=== PATIENT | male | born 1980 | race Caucasian/White ===

== ENCOUNTER 2023-07-03 16:01 | Outpatient (OUT) | payer OTHER, SELFPAY ==
[2023-07-03 16:44] LABS: Basophils Absolute Auto 0.1 10^3/uL (0.0-0.1); Eosinophils Absolute Auto 0.2 10^3/uL (0.0-0.7); Eosinophils Percent Auto 2.3 % (0.9-7.0); Hematocrit 49.2 % (42.0-54.0); Hemoglobin 16.3 g/dL (14.0-18.0); Immature Granulocytes Abs Auto 0.03 10^3/uL (0.00-0.03); Immature Granulocytes Pct Auto 0.3 % (0.0-0.5); Lymphocytes Absolute Auto 2.9 10^3/uL (1.2-3.8); Lymphocytes Percent Auto 29.1 % (20.5-60.0); Mean Corpuscular HGB Conc 33.1 g/dL (29.9-35.2); Mean Corpuscular Hemoglobin 30.5 pg (25.9-34.0); Mean Corpuscular Volume 92.1 fL (80.0-94.0); Mean Platelet Volume 10.8 fL (9.5-13.5); Monocytes Absolute Auto 0.9 10^3/uL (0.3-0.8); Monocytes Percent Auto 8.7 % (1.7-12.0); Neutrophils Absolute Auto 5.9 10^3/uL (1.4-6.5); Neutrophils Percent Auto 58.6 % (43.0-75.0); Platelet Count 219 10^3/uL (150-450); Red Blood Count 5.34 10^6/uL (4.70-6.10); Red Cell Distribution Width 13.5 % (11.0-15.0); White Blood Count 10.1 10^3/uL (4.0-11.0)
[2023-07-03 17:38] LABS: Alanine Aminotransferase 67 U/L (16-63); Albumin Globulin Ratio 1.4; Albumin Level 4.4 g/dL (3.4-5.0); Alkaline Phosphatase 79 U/L (46-116); Anion Gap 10.9; Aspartate Amino Transferase 26 U/L (15-37); BUN Creatinine Ratio 15.7; Bilirubin Total 0.6 mg/dL (0.2-1.0); Calcium 9.5 mg/dL (8.5-10.1); Carbon Dioxide 30.6 mmol/L (21.0-32.0); Chloride 100 mmol/L (98-107); Chol HDL Ratio 4.8; Cholesterol 198 mg/dL (<=200); Estimated GFR (African America >60 (>=60); Estimated GFR (Non-African Ame >60 (>=60); Globulin 3.1 g/dL; Glucose 100 mg/dL (74-106); HDL Cholesterol 41 mg/dL (40-60); Potassium 3.5 mmol/L (3.5-5.1); Sodium 138 mmol/L (136-145); TSH W/ REFLEX FT4 1.219 uIU/mL (0.358-3.740); Total Protein 7.5 g/dL (6.4-8.2); Triglycerides 105 mg/dL (<=150); Uric Acid 5.7 mg/dL (3.5-7.2)
== END 2023-07-03 16:02 | disposition home or self-care (01) ==
LOC: LAB 16:04
PROVIDERS: PCP Nurse Practitioner; Visit Provider Nurse Practitioner
DX: E78.2 Mixed hyperlipidemia (principal); I10 Essential (primary) hypertension; M1A.09X0 Idiopathic chronic gout, multiple sites, without tophus (tophi)
CPT/HCPCS: 36415; 80053; 80061; 82043; 82570; 84443; 84550; 85025

== ENCOUNTER 2023-07-06 16:12 | Outpatient (REF) | payer OTHER, SELFPAY ==
[2023-07-06 16:27] LABS: Bilirubin Urine NEGATIVE (NEGATIVE); Blood Urine NEGATIVE (NEGATIVE); Clarity Urine CLEAR (CLEAR); Color Urine YELLOW (YELLOW); Glucose Urine UA NEGATIVE (NEGATIVE); Ketones Urine NEGATIVE (NEGATIVE); Leukocyte Esterase Urine NEGATIVE (NEGATIVE); Nitrite Urine NEGATIVE (NEGATIVE); Protein Urine NEGATIVE (NEG/TRACE); Specific Gravity Urine 1.025 (1.005-1.025); pH Urine 6.5 (5.0-9.0)
[2023-07-06 16:30] LABS: Urine Microscopic Indicated NO
[2023-07-06 16:31] LABS: Creatinine Urine Random 221.86 mg/dL (20.00-300.00); Microalbum Creatinine Ratio Ur 8.1 mg/g (0.0-29.9); Microalbumin Urine Random 1.8 mg/dL (<=30.0)
== END 2023-07-06 16:13 | disposition home or self-care (01) ==
LOC: LAB 16:12
PROVIDERS: PCP Nurse Practitioner; Visit Provider Nurse Practitioner
DX: M1A.09X0 Idiopathic chronic gout, multiple sites, without tophus (tophi) (principal); I10 Essential (primary) hypertension; E78.2 Mixed hyperlipidemia
CPT/HCPCS: 81003; 82043; 82570

== ENCOUNTER 2024-09-20 07:20 | Outpatient (OUT) | payer OTHER, SELFPAY ==
--- OUTSIDE RECORDS SUMMARY | 2024-09-20 07:24 | XMS_ITS | Encounter Summary ---
Author Organization [facility] Address [address] [place] [address] Care Team Providers Care Public Health Director Name Role Phone Angel Morgan MD Primary Care Provider [phone] Tori Almeida NP Unavailable [phone] Reason for Visit * Reason Comments Med Refill Encounter Details Date Type Department Care Team (Late st Contact Info) Description 09/04/2024 [facility] [address] [place] [phone] Tori Almeida NP [address] [place] [address] Primary hypertension Social History Tobacco Use Types Packs/Day Years Used Date Smoking Tobacco: Former Cigarettes Q uit: 2014 Smokeless Tobacco: Never Alcohol Use Standard Drinks/Week Comments Never 0 (1 standard drink = 0.6 oz pur e alcohol) caffine: energy drinks 2 daily Sex and Gender Information Value Date Recorded Sex Assigned at Not on file Legal Sex Male 7:16 PM EDT Gender Identity Not on file Sexual Orientation Not on file documented as of this encounter Plan of Treatment Not on file documented as of this encounter Visit Diagnoses Diagnosis Primary hypertension Unspecified essential hypertension documented in this encounter Care Teams Public Health Director Relationship Specialty Start Date End Date Angel Morgan MD [address] [place] [address] PCP - General Family Medicine 07/03/23 Tori Almeida NP [address] [facility] [address] Nurse Practitioner Family Medicine 07/03/23 documented as of this encounter
--- OUTSIDE RECORDS SUMMARY | 2024-09-20 07:24 | XMS_ITS | Encounter Summary ---
Author Organization [facility] Address [address] [place] [address] Care Team Providers Care Tubing Drier Name Role Phone Angel Morgan MD Primary Care Provider [phone] Tori Almeida GEOTHERMAL SHEET METAL WORKER Unavailable [phone] Reason for Visit * Reason Comments Med Refill Encounter Details Date Type Department Care Team (Late st Contact Info) Description 05/21/2023 Refill [facility] [address] [place] [address] Tori Almeida NP [address] [place] [address] Social History Tobacco Use Types Packs/Day Years Used Date Smoking Tobacco: Never Assessed Sex and Gender Information Value Date Recorded Sex Assigned at Not on file Legal Sex Male 7:16 PM EDT Gender Identity Not on file Sexual Orientation Not on file documented as of this encounter Miscellaneous Notes * Telephone Encounter - Tori Almeida NP - 05/21/2023 5:50 PM EST Needs a fu appt documented in this encounter Plan of Treatment Not on file documented as of this encounter Visit Diagnoses Not on filedocumented in this encounter Care Teams Tubing Drier Relationship Specialty Start Date End Date Angel Morgan MD [address] [place] [address] PCP - General Family Medicine 07/03/23 Tori Almeida NP [address] [place] [address] Nurse Practitioner Family Medicine 07/03/23 documented as of this encounter
--- OUTSIDE RECORDS SUMMARY | 2024-09-20 07:24 | XMS_ITS | Clinical Summary ---
Author Organization [facility] Healthcare Address [address] [place] [address] Care Team Providers Care Tailoring Teacher Name Role Phone Angel Morgan MD Primary Care Provider [phone] Tori Almeida NP Unavailable [phone] Allergies No known active allergies Medications lisinopril 20 MG tabletIndication s:Primary hypertension Take 1 tablet (20 mg) by mouth Daily 90 tablet 1 4 Active lisinopril-hydro CHLOROthiazide 20-25 MG tabletIndication s:Primary hypertension Take 1 tablet by mouth Daily 90 tablet 1 4 Active allopurinol (Zyloprim) 300 MG tabletIndication s:Chronic gout of multiple sites, unspecified cause Take 1 tablet (300 mg) by mouth Daily 90 tablet 5 025 Active amLODIPine (Norvasc) 5 MG tabletIndication s:Primary hypertension Take 1 tablet (5 mg) by mouth Daily 90 tablet 5 025 Active allopurinol (Zyloprim) 300 MG tabletIndication s:Chronic gout of multiple sites, unspecified cause Take 1 tablet (300 mg) by mouth Daily Take 300 mg by mouth Daily 90 tablet 1 4 025 Discontinued amLODIPine (Norvasc) 5 MG tabletIndication s:Primary hypertension Take 1 tablet (5 mg) by mouth Daily 90 tablet 4 025 Discontinued Active Problems Problem Noted Date Diagnosed Date Plantar fasciitis of right foot 01/03/2024 Assessment & Plan (01/03/2024 4:28 PM EDT): Will trial stretching exercises, fu in 4-6 weeks and if not better consult podiatry Santosh conroy 07/03/2023 Class 3 severe obesity witho ut serious comorbidity with body mass index (BMI) of 40.0 to 44.9 in adult 07/03/2023 Chronic gout of multiple sites 06/12/2023 Assessment & Plan (07/03/2023 3:48 PM EDT): Pharmacy shortages of the 400mg allopurinol, has only been getting his 300mg dose Recheck labs Primary hypertension 06/12/2023 Assessment & Plan (01/03/2024 4:27 PM EDT): Will increase dose on amlodipine to 5mg daily Cont other lisinopril and lisinopril/hydrochlorothiazide Fu in 6 weeks for BP check Assessment & Plan (07/03/2023 3:48 PM EDT): Did not take meds this morning, will take when gets home Fu in 6 months LORENA (obstructive sleep apnea) 06/12/2023 Mixed hyperlipidemia 06/12/2023 Encounters Date Type Department Care Team Description 09/04/2024 Refill [facility] [address] [place] [address] Tori Almeida NP Primary hypertension 08/28/2024 Refill [facility] [address] [place] [address] Tori Almeida NP Mixed hyperlipidemia (Primary Dx); Chronic gout of multiple sites, unspecified cause; Primary hypertension 08/28/2024 Refill [facility] [address] [place] [phone] Tori Almeida NP Chronic gout of multiple sites, unspecified cause from Last 3 Months Social History Tobacco Use Types Packs/Day Years Used Date Smoking Tobacco: Former Cigarettes Q uit: 2013 Smokeless Tobacco: Never Tobacco Cessation:Counseling Given: Not Answered Alcohol Use Standard Drinks/Week Comments Never 0 (1 standard drink = 0.6 oz pur e alcohol) caffine: energy drinks 2 daily Sex and Gender Information Value Date Recorded Sex Assigned at Not on file Legal Sex Male 7:16 PM EDT Gender Identity Not on file Sexual Orientation Not on file Last Filed Vital Signs Vital Sign Reading Time Taken Comments Blood Pressure 152/88 01/03/2024 3:54 PM EDT Pulse 72 01/03/2024 3:54 PM EDT Temperature 37.2 C (99 F) 01/03/2024 3:54 PM EDT Respiratory Rate 20 01/03/2024 3:54 PM EDT Oxygen Saturation 99% 01/03/2024 3:54 PM EDT Inhaled Oxygen Concentration - - Weight 143 kg (315 lb 3.2 oz) 01/03/2024 3:54 PM EDT Height 188 cm (6' 2 ) 01/03/2024 3:54 PM EDT Body Mass Index 40.47 01/03/2024 3:54 PM EDT Plan of Treatment Health Maintenance Due Date Last Done Comments CT Colonography 1979 Colonoscopy 1979 Colorectal Cancer Screening 1979 FIT-DNA 1979 FIT 1979 FOBT 1979 Sigmoidoscopy 1979 Influenza Vaccine Discontinued Insurance [address] [place] [phone] [employer] Care Teams Tailoring Teacher Relationship Specialty Start Date End Date Angel Morgan MD [address] [place] [phone] PCP - General Family Medicine 07/03/23 Toir Almeida NP [address] [place] [address] Nurse Practitioner Family Medicine 07/03/23
--- OUTSIDE RECORDS SUMMARY | 2024-09-20 07:24 | XMS_ITS | Encounter Summary ---
Author Organization [facility] Address [address] [place] [address] Care Team Providers Care Nutrition Technician Name Role Phone Angel Morgan MD Primary Care Provider Tori Almeida NP Unavailable [phone] Reason for Visit * Reason Comments Med Refill Encounter Details Date Type Department Care Team (Late st Contact Info) Description 08/28/2024 [facility] [address] [place] [address] Tori Almeida NP [address] [place] [address] Chronic gout of multiple sites, unspecified cause Social History Tobacco Use Types Packs/Day Years [...] Telephone Encounter - Tori Almeida NP - 08/28/2024 8:28 AM EDT Please call pt, have him schedule an appt, he cancelled his last appt and has not been seen since 12/31. He is also in need of fasting labs, I will send order in the mail [place] documented in this encounter Plan of Treatment Not on file documented as of this encounter Visit Diagnoses Diagnosis Chronic gout of multiple sites, unspecified cause documented in this encounter Care Teams Nutrition Technician Relationship Specialty Start Date End Date Angel Morgan MD [address] [place] [address] PCP - General Family Medicine 07/03/23 Tori Almeida NP [address] [place] [address] Nurse Practitioner Family Medicine 07/03/23 documented as of this encounter
[2024-09-20 07:47] LABS: Basophils Absolute Auto 0.1 10^3/uL (0.0-0.1); Basophils Percent Auto 0.9 % (0.2-2.0); Eosinophils Absolute Auto 0.3 10^3/uL (0.0-0.7); Eosinophils Percent Auto 3.2 % (0.9-7.0); Hematocrit 46.9 % (42.0-54.0); Hemoglobin 15.7 g/dL (14.0-18.0); Immature Granulocytes Abs Auto 0.03 10^3/uL (0.00-0.03); Immature Granulocytes Pct Auto 0.3 % (0.0-0.5); Lymphocytes Absolute Auto 2.8 10^3/uL (1.2-3.8); Mean Corpuscular HGB Conc 33.5 g/dL (29.9-35.2); Mean Corpuscular Hemoglobin 30.4 pg (25.9-34.0); Mean Corpuscular Volume 90.9 fL (80.0-94.0); Mean Platelet Volume 10.2 fL (9.5-13.5); Monocytes Absolute Auto 0.9 10^3/uL (0.3-0.8); Monocytes Percent Auto 9.4 % (1.7-12.0); Neutrophils Absolute Auto 5.6 10^3/uL (1.4-6.5); Neutrophils Percent Auto 57.2 % (43.0-75.0); Platelet Count 231 10^3/uL (150-450); Red Blood Count 5.16 10^6/uL (4.70-6.10); Red Cell Distribution Width 13.4 % (11.0-15.0); White Blood Count 9.7 10^3/uL (4.0-11.0)
[2024-09-20 09:33] LABS: Alanine Aminotransferase 36 U/L (16-63); Albumin Globulin Ratio 1.3; Albumin Level 4.3 g/dL (3.4-5.0); Alkaline Phosphatase 89 U/L (46-116); Anion Gap 15.5; Aspartate Amino Transferase 22 U/L (15-37); BUN Creatinine Ratio 25.8; Bilirubin Total 1.1 mg/dL (0.2-1.0); Calcium 9.4 mg/dL (8.5-10.1); Carbon Dioxide 25.9 mmol/L (21.0-32.0); Chloride 103 mmol/L (98-107); Chol HDL Ratio 4.6; Cholesterol 183 mg/dL (<=200); Estimated GFR (African America >60 (>=60 mL/min/1.73m^2); Estimated GFR (Non-African Ame >60 (>=60 mL/min/1.73m^2); Globulin 3.3 g/dL; Glucose 116 mg/dL (74-106); HDL Cholesterol 40 mg/dL (40-60); LDL Cholesterol Calculated 115.8 mg/dL; Potassium 3.4 mmol/L (3.5-5.1); Sodium 141 mmol/L (136-145); Total Protein 7.6 g/dL (6.4-8.2); Triglycerides 136 mg/dL (<=150); Uric Acid 5.8 mg/dL (3.5-7.2); VLDL CHOLESTEROL 27.2 mg/dL
== END 2024-09-20 07:21 | disposition home or self-care (01) ==
PROVIDERS: PCP Nurse Practitioner; Visit Provider Nurse Practitioner
DX: E78.2 Mixed hyperlipidemia (principal); M1A.09X0 Idiopathic chronic gout, multiple sites, without tophus (tophi); I10 Essential (primary) hypertension
CPT/HCPCS: 36415; 80053; 80061; 82043; 82570; 84550; 85025

== ENCOUNTER 2024-09-24 06:11 | Outpatient (REF) | payer OTHER, SELFPAY ==
--- OUTSIDE RECORDS SUMMARY | 2024-09-24 06:15 | XMS_ITS | Clinical Summary ---
Author Organization [facility] Address [id number] [address] [place] [address] Care Team Providers Care Type Cutter Name Role Phone Tori Almeida HOUSE BUILDER-DUMPER BULK SYSTEM Primary Care Provider Social History Tobacco Use Types Packs/Day Years Used Date Smoking Tobacco: Never Assessed Childcare Answer Date Recorded Childcare Unknown 09/18/2018 Employment Answer Date Recorded Employment Unknown 09/18/2018 Purpose - Life Answer Date Recorded Purpose and direction in life Unknown Sex and Gender Information Value Date Recorded Sex Assigned at Not on file Legal Sex Male 11:37 AM EDT Gender Identity Not on file Sexual Orientation Not on file Plan of Treatment Health Maintenance Due Date Last Done Comments Depression Screening 1991 Tobacco Screening 1991 Adult BMI Screening 1997 DTaP,Tdap and Td Vaccines (1 - Tdap) 1998 Influenza Vaccine 12/08/2024 Medical Devices Not on file Insurance [employer] Care Teams Type Cutter Relationship Specialty Start Date End Date Tori Almeida, HOUSE BUILDER-DUMPER BULK SYSTEM PCP - General Nurse Practitioner 06/09/19
--- OUTSIDE RECORDS SUMMARY | 2024-09-24 06:15 | XMS_ITS | Encounter Summary ---
Author Organization [facility] Address [address] [facility] [place] [address] Care Team Providers Care Child Care Center Administrator Name Role Phone Angel Morgan MD Primary Care Provider [phone] Tori Almeida NP Unavailable [phone] Encounter Details Date Type Department Care Team (Late st Contact Info) Description 09/20/2024 Clinisync Result Encounter [facility] External Department Unsolicited Tori Almeida NP [address] [place] [address] Social History Tobacco Use Types [...] as of this encounter Plan of Treatment Upcoming Encounters Date Type Department Care Team (Late st Contact Info) Description 10/13/2024 3:40 PM EDT Office Visit [facility] [address] [place] [address] Tori Almeida NP [address] [place] [address] documented as of this encounter Procedures Procedure Name Priority Date/Time Associated Diagnosis Comments [facility]CF CMP (CMP) (FOR REMOTE [facility] USE) Routine 09/20/2024 7:34 AM EDT ALL URIC ACID Routine 09/20/2024 7:34 AM EDT ALL LIPID PROFILE (FASTING) Routine 09/20/2024 7:34 AM EDT ALL CBC WITH AUTO DIFF Routine 09/20/2024 7:34 AM EDT documented in this encounter Results * ALL LIPID PROFILE (FASTING) (09/20/2024 7:34 AM EDT) TRIGLYCERIDES 136 <=150 mg/dL TBH CHOLESTEROL 183 <=200 mg/dL TBH HDL CHOLESTEROL 40 40 - 60 mg/dL TB Comment: > or =60 mg/dl - LOW CARDIOVASCULAR RISK <40 mg/dl - HIGH CARDIOVASCULAR RISK LDL CHOLESTEROL CALCULATED 115.8 mg/dL TB Comment: <100 mg/dl OPTIMAL 100-129 mg/dl NEAR OR ABOVE OPTIMAL 130-159 mg/dl BORDERLINE HIGH 160-189 mg/dl HIGH >190 mg/dl VERY HIGH VLDL CHOLESTEROL 27.2 mg/dL TBH CHOL HDL RATIO 4.6 TBH Comment: 3.3 - 4.4 LOW RISK 4.4 - 7.1 AVERAGE RISK 7.1 - 11.0 MODERATE RISK >11.0 HIGH RISK 09/20/2024 7:34 AM EDT 09/20/2024 7:35 AM EDT Narrative CLINISYNC - 09/20/2024 9:39 AM EDT us Tori Almeida NP CLINISYNC Final Result [facility] * ALL URIC ACID (09/20/2024 7:34 AM EDT) URIC ACID 5.8 3.5 - 7.2 mg/dL TBH 09/20/2024 7:34 AM EDT 09/20/2024 7:35 AM EDT Narrative CLINISYNC - 09/20/2024 9:39 AM EDT us Tori Almeida EXECUTIVE ADMINISTRATIVE ASST CLINISYNC Final Result CLINISYNC [facility] * (ABNORMAL) [facility]CF CMP (CMP) (FOR REMOTE [facility] USE) (09/20/2024 7:34 AM EDT) SODIUM 141 136 - 145 mmol/L TBH POTASSIUM 3.4(L) 3.5 - 5.1 mmol/L TBH CHLORIDE 103 98 - 107 mmol/L TBH CARBON DIOXIDE 25.9 21.0 - 32.0 mmol/L TBH ANION GAP 15.5 TBH GLUCOSE 116(H) 74 - 106 mg/dL TBH BLOOD UREA NITROGEN 23.0(H) 7.0 - 18.0 mg/dL TBH CREATININE 0.89 0.70 - 1.30 mg/dL TBH TBH EGFR-AF [facility] [place] >60 >=60 mL/min/1. 73m 2 TBH TBH EGFR-NON AF [facility] [place] >60 >=60 mL/min/1. 73m 2 TBH BUN CREATININE RATIO 25.8 TBH CALCIUM 9.4 8.5 - 10.1 mg/dL TBH BILIRUBIN TOTAL 1.1(H) 0.2 - 1.0 mg/dL TBH ASPARTATE AMINO TRANSFERASE 22 15 - 37 U/L TBH ALANINE AMINOTRANSFERASE 36 16 - 63 U/L TBH ALKALINE PHOSPHATASE 89 46 - 116 U/L TBH TOTAL PROTEIN 7.6 6.4 - 8.2 g/dL TBH ALBUMIN LEVEL 4.3 3.4 - 5.0 g/dL TBH GLOBULIN 3.3 g/dL TBH ALBUMIN GLOBULIN RATIO 1.3 TBH 09/20/2024 7:34 AM EDT 09/20/2024 7:35 AM EDT Narrative CLINISYNC - 09/20/2024 9:39 AM EDT Tori Almeida NP CLINISYNC Final Result CLINISYNC [facility] * (ABNORMAL) ALL CBC WITH AUTO DIFF (09/20/2024 7:34 AM EDT) TB WBC 9.7 4.0 - 11.0 10 3/uL TBH TBH RBC 5.16 4.70 - 6.10 10 6/uL TBH TBH HGB 15.7 14.0 - 18.0 g/dL TBH TBH HCT 46.9 42.0 - 54.0 % TBH TBH MCV 90.9 80.0 - 94.0 fL TBH TBH MCH 30.4 25.9 - 34.0 pg TBH TBH MCHC 33.5 29.9 - 35.2 g/dL TBH TBH RDW 13.4 11.0 - 15.0 % TBH TBH PLT 231 150 - 450 10 3/uL TBH TBH MPV 10.2 9.5 - 13.5 fL TBH NEUTROPHILS PERCENT AUTO 57.2 43.0 - 75.0 % TBH LYMPHOCYTES PERCENT AUTO 29.0 20.5 - 60.0 % TBH MONOCYTES PERCENT AUTO 9.4 1.7 - 12.0 % TBH TBH EO % 3.2 0.9 - 7.0 % TBH BASOPHILS PERCENT AUTO 0.9 0.2 - 2.0 % TBH IMMATURE GRANULOCYTES PCT AUTO 0.3 0.0 - 0.5 % TBH NEUTROPHILS ABSOLUTE AUTO 5.6 1.4 - 6.5 10 3/uL TBH LYMPHOCYTES ABSOLUTE AUTO 2.8 1.2 - 3.8 10 3/uL TBH MONOCYTES ABSOLUTE AUTO 0.9(H) 0.3 - 0.8 10 3/uL TBH TBH EO # 0.3 0.0 - 0.7 10 3/uL TBH BASOPHILS ABSOLUTE AUTO 0.1 0.0 - 0.1 10 3/uL TBH IMMATURE GRANULOCYTES ABS AUTO 0.03 0.00 - 0.03 10 3/uL TBH 09/20/2024 7:34 AM EDT 09/20/2024 7:35 AM EDT Narrative CLINISYNC - 09/20/2024 7:48 AM EDT us Toir Almeida NP [facility] documented in this encounter Visit Diagnoses Not on filedocumented in this encounter Care Teams Child Care Center Administrator Relationship Specialty Start Date End Date Angel Morgan MD [address] [place] [address] PCP - General Family Medicine 07/03/23 Tori Almeida NP [address] [place] [address] Nurse Practitioner Family Medicine 07/03/23 documented as of this encounter
--- OUTSIDE RECORDS SUMMARY | 2024-09-24 06:15 | XMS_ITS | Encounter Summary ---
Author Organization [facility] Address [address] [place] [address] Care Team Providers Care K 12 Principal Name Role Phone Angel Morgan MD Primary Care Provider [phone] Tori Almeida NP Unavailable [phone] Reason for Visit * Reason Comments Med Refill Encounter Details Date Type Department Care Team (Late st Contact Info) Description 08/28/2024 [facility] [address] [place] [address] Tori Almeida NP [address] [place] [address] Chronic gout of multiple sites, unspecified cause [...] documented in this encounter Plan of Treatment Upcoming Encounters Date Type Department Care Team (Late st Contact Info) Description 10/13/2024 3:40 PM EDT Office Visit [facility] [address] [place] [address] Tori Almeida NP [address] [place] [address] documented as of this encounter Visit Diagnoses Diagnosis Chronic gout of multiple sites, unspecified cause documented in this encounter Care Teams K 12 Principal Relationship Specialty Start Date End Date Angel Morgan MD [address] [place] [address] PCP - General Family Medicine 07/03/23 Tori Almeida NP [address] [place] [address] Nurse Practitioner Family Medicine 07/03/23 documented as of this encounter
--- OUTSIDE RECORDS SUMMARY | 2024-09-24 06:15 | XMS_ITS | Clinical Summary ---
Author Organization [facility] Healthcare Address [address] [place] [address] Care Team Providers Care Renewals Manager Name Role Phone Angel Morgan MD Primary Care Provider [phone] Tori Almeida NP Unavailable [phone] Allergies No known active allergies Medications [...] Active Problems Problem Noted Date Diagnosed Date Hyperglycemia 09/20/2024 Plantar fasciitis of right foot 01/03/2024 Assessment & Plan (01/03/2024 4:28 PM EDT): Will trial stretching exercises, fu in 4-6 weeks and if not better consult podiatry Santosh antoineomacy 07/03/2023 Class 3 severe obesity witho ut [...] Encounters Date Type Department Care Team Description 09/20/2024 Orders Only [facility] [address] [place] [phone] Tori Almeida NP Hyperglycemia (Primary Dx) 09/20/2024 Clinisync Result Encounter [facility] External Department Unsolicited Tori Almeida NP 09/04/2024 Refill [facility] [address] [place] [phone] Tori Almeida NP Primary hypertension 08/28/2024 Refill [facility] [address] [place] [address] Toir Almeida NP Mixed hyperlipidemia (Primary Dx); Chronic gout of multiple sites, unspecified cause; Primary hypertension 08/28/2024 Refill [facility] [address] [place] [address] Tori Almeida NP Chronic gout of multiple sites, unspecified cause from Last 3 Months Social History Tobacco Use Types Packs/Day Years Used Date Smoking Tobacco: Former Cigarettes Q uit: 2014 Smokeless Tobacco: Never Tobacco Cessation:Counseling Given: Not [...] 01/03/2024 3:54 PM EDT Plan of Treatment Upcoming Encounters Date Type Department Care Team (Late st Contact Info) Description 10/13/2024 3:40 PM EDT [facility] [address] [place] [address] Tori Almeida NP [address] [place] [address] Health Maintenance Due Date Last Done Comments CT Colonography 1979 Colonoscopy 1979 Colorectal Cancer Screening 1979 FIT-DNA 1979 FIT 1979 FOBT 1979 Sigmoidoscopy 1979 Influenza Vaccine Discontinued Procedures Procedure Name Priority Date/Time Associated Diagnosis Comments ALL LIPID PROFILE (FASTING) Routine 09/20/2024 7:34 AM EDT ALL URIC ACID Routine 09/20/2024 7:34 AM EDT [facility]CF CMP (CMP) (FOR REMOTE [facility] USE) Routine 09/20/2024 7:34 AM EDT ALL CBC WITH AUTO DIFF Routine 09/20/2024 7:34 AM EDT from Last 3 Months Results * (ABNORMAL) CCF CMP (CMP) (FOR REMOTE [facility] USE) (09/20/2024 7:34 AM EDT) SODIUM [...] 0.70 - 1.30 mg/dL TBH TBH EGFR-AF [place]DI[place] >60 >=60 mL/min/1. 73m 2 TBH TBH EGFR-NON AF [place]DI[place] >60 >=60 mL/min/1. 73m 2 TBH BUN [...] CLINISYNC - 09/20/2024 9:39 AM EDT Tori Juan Pablo DAVID [facility] Final Result [facility] * ALL URIC ACID (09/20/2024 7:34 AM EDT) Pathologist [facility] URIC ACID 5.8 3.5 - 7.2 mg/dL [facility] 09/20/2024 7:34 AM EDT 09/20/2024 7:35 AM EDT Narrative CLINISYNC - 09/20/2024 9:39 AM EDT Tori Juan Pablo DAVID CLINISYNC Final Result Performing Organization Address [facility] Co de Phone Number [facility] * ALL LIPID PROFILE (FASTING) (09/20/2024 7:34 AM EDT) TRIGLYCERIDES 136 <=150 mg/dL TBH CHOLESTEROL 183 <=200 mg/dL [facility] HDL CHOLESTEROL 40 40 - 60 mg/dL [facility] Comment: > or =60 mg/dl - LOW CARDIOVASCULAR RISK <40 mg/dl - HIGH CARDIOVASCULAR RISK LDL CHOLESTEROL CALCULATED 115.8 mg/dL [facility] Comment: <100 mg/dl OPTIMAL 100-129 mg/dl NEAR OR ABOVE OPTIMAL 130-159 mg/dl BORDERLINE HIGH 160-189 mg/dl HIGH >190 mg/dl VERY HIGH VLDL CHOLESTEROL 27.2 mg/dL [facility] CHOL HDL RATIO 4.6 [facility] Comment: 3.3 - 4.4 LOW RISK 4.4 - 7.1 AVERAGE RISK 7.1 - 11.0 MODERATE RISK >11.0 HIGH RISK 09/20/2024 7:34 AM EDT 09/20/2024 7:35 AM EDT Narrative CLINISYNC - 09/20/2024 9:39 AM EDT Tori Melissamauriceidalia INTER COM SERVICER CLINISYNC Final Result Performing Organization Address [facility]/ZIP Co de Phone Number [facility] * (ABNORMAL) ALL CBC WITH AUTO DIFF (09/20/2024 7:34 AM EDT) TBH WBC 9.7 4.0 - 11.0 10 3/uL [...] CLINISYNC - 09/20/2024 7:48 AM EDT us Tori Almeida NP CLINISYNC Final Result [facility] from Last 3 Months Insurance [address] [place] [address] [employer] Care Teams Renewals Manager Relationship Specialty Start Date End Date Angel Morgan MD [address] [place] [address] PCP - General Family Medicine 07/03/23 Tori Almeida NP [address] [place] [address] Nurse Practitioner Family Medicine 07/03/23
--- OUTSIDE RECORDS SUMMARY | 2024-09-24 06:15 | XMS_ITS | Encounter Summary ---
Author Organization [facility] Address [address] [place] [address] Care Team Providers Care Label Stamper Name Role Phone Angel Morgan MD Primary Care Provider [phone] Tori Almeida NP Unavailable [phone] Reason for Visit * Reason Comments Med Refill Encounter Details Date Type Department Care Team (Late st Contact Info) Description 05/21/2023 Refill [facility] [address] [place] [address] Tori Almeida NP [address] [place] [address] Social History Tobacco Use Types Packs/Day Years [...] 10/13/2024 3:40 PM EDT Office Visit [facility] [address] [place] [address] Tori Almeida NP [address] [place] [address] documented as of this encounter Visit Diagnoses Not on filedocumented in this encounter Care Teams Label Stamper Relationship Specialty Start Date End Date Angel Morgan MD [address] [place] [address] PCP - General Family Medicine 07/03/23 Tori Almeida NP [address] [place] [address] Nurse Practitioner Family Medicine 07/03/23 documented as of this encounter
[2024-09-24 06:27] LABS: Bilirubin Urine NEGATIVE (NEGATIVE); Blood Urine NEGATIVE (NEGATIVE); Clarity Urine CLEAR (CLEAR); Color Urine YELLOW (YELLOW); Glucose Urine UA NEGATIVE (NEGATIVE); Ketones Urine NEGATIVE (NEGATIVE); Leukocyte Esterase Urine NEGATIVE (NEGATIVE); Nitrite Urine NEGATIVE (NEGATIVE); Protein Urine NEGATIVE (NEG/TRACE); Specific Gravity Urine 1.025 (1.005-1.025); Urine Microscopic Indicated NO
[2024-09-24 06:31] LABS: Creatinine Urine Random 247.34 mg/dL (20.00-300.00); Microalbum Creatinine Ratio Ur 5.2 mg/g (0.0-29.9); Microalbumin Urine Random <1.3 mg/dL (<=30.0)
== END 2024-09-24 06:12 | disposition home or self-care (01) ==
LOC: LAB 06:11
PROVIDERS: PCP Nurse Practitioner; Visit Provider Nurse Practitioner
DX: E78.2 Mixed hyperlipidemia (principal); M1A.09X0 Idiopathic chronic gout, multiple sites, without tophus (tophi); I10 Essential (primary) hypertension
CPT/HCPCS: 81003; 82043; 82570

== ENCOUNTER 2024-10-13 07:30 | Outpatient (OUT) | payer OTHER, SELFPAY ==
--- OUTSIDE RECORDS SUMMARY | 2024-10-13 07:33 | XMS_ITS | Clinical Summary ---
Author Organization [facility] Healthcare Address [address] [place] [address] Care Team Providers Care Securities Underwriter Name Role Phone nAgel Morgan MD Primary Care Provider [phone] Tori Almeida NP Unavailable Allergies No known active allergies Medications allopurinol (Zyloprim) 300 MG tabletIndication s:Chronic gout of multiple sites, unspecified cause Take 1 tablet (300 mg) by mouth Daily 90 tablet 5 025 Active amLODIPine (Norvasc) 5 MG tabletIndication s:Primary hypertension Take 1 tablet (5 mg) by mouth Daily 90 tablet 5 025 Active lisinopril 20 MG tabletIndication s:Primary hypertension Take 1 tablet (20 mg) by mouth Daily 90 tablet 5 025 Active lisinopril-hydro CHLOROthiazide 20-25 MG tabletIndication s:Primary hypertension Take 1 tablet by mouth Daily 90 tablet 5 025 Active lisinopril 20 MG tabletIndication s:Primary hypertension Take 1 tablet (20 mg) by mouth Daily 90 tablet 1 4 025 Discontinued lisinopril-hydro CHLOROthiazide 20-25 MG tabletIndication s:Primary hypertension Take 1 tablet by mouth Daily 90 tablet 1 4 025 Discontinued Active Problems Problem Noted Date Diagnosed Date Colon cancer screening 10/13/2024 Hyperglycemia 09/20/2024 Plantar fasciitis of right foot 01/03/2024 Assessment & Plan (01/03/2024 4:28 PM EDT): Will trial stretching exercises, fu in 4-6 weeks and if not better consult podiatry Santosh sandersy 07/03/2023 Class 3 severe obesity witho ut [...] Encounters Date Type Department Care Team Description 09/30/2024 Refill [facility] [address] [place] [id number] Tori Almeida NP Primary hypertension 09/24/2024 Clinisync Result Encounter [facility] External Department Unsolicited Tori Almeida NP 09/20/2024 [facility] [address] [place] [phone] Tori Almeida NP Hyperglycemia (Primary Dx) 09/20/2024 Clinisync Result Encounter [facility] External Department Unsolicited Tori Almeida NP 09/04/2024 Refill [facility] [address] [place] [phone] Tori Almeida NP Primary hypertension 08/28/2024 Refill [facility] [address] [place] [address] Tori Almeida NP Mixed hyperlipidemia (Primary Dx); Chronic gout of multiple sites, unspecified cause; Primary hypertension 08/28/2024 Refill [facility] [address] [place] [address] Tori Almeida NP Chronic gout of multiple [...] 10/13/2024 3:40 PM EDT Office Visit [facility] [address] [place] [phone] Tori Almeida NP [address] [place] [address] Health Maintenance Due Date Last Done Comments CT Colonography 1979 Colonoscopy 1979 Colorectal Cancer Screening 1979 FIT-DNA 1979 FIT 1979 FOBT 1979 Sigmoidoscopy 1979 Influenza Vaccine Discontinued Procedures Procedure Name Priority Date/Time Associated Diagnosis Comments TBH MICROALB CREAT RATIO RANDOM Routine 09/24/2024 5:00 AM EDT TBH UA (CLEAN/CATCH) MICROSCOPIC IF INDICATE Routine 09/24/2024 5:00 AM EDT ALL LIPID PROFILE (FASTING) Routine 09/20/2024 7:34 AM EDT ALL URIC ACID Routine 09/20/2024 7:34 AM EDT [facility] CMP (CMP) (FOR REMOTE [facility] USE) Routine 09/20/2024 7:34 AM EDT ALL CBC WITH AUTO DIFF Routine 09/20/2024 7:34 AM EDT from Last 3 Months Results * TBH UA (CLEAN/CATCH) MICROSCOPIC IF INDICATE (09/24/2024 5:00 AM EDT) COLOR URINE YELLOW YELLOW TBH CLARITY URINE CLEAR CLEAR TBH SPECIFIC GRAVITY URINE 1.025 1.005 - 1.025 TBH PH URINE 6.0 5.0 - 9.0 TBH PROTEIN URINE NEGATIVE NEG/TRACE mg/dL TBH GLUCOSE URINE UA NEGATIVE NEGATIVE mg/dL TBH BILIRUBIN URINE NEGATIVE NEGATIVE TBH KETONES URINE NEGATIVE NEGATIVE mg/dL TBH BLOOD URINE NEGATIVE NEGATIVE TBH NITRITE URINE NEGATIVE NEGATIVE TBH UROBILINOGEN URINE 1.0 0.2 - 1.0 EU/dL TBH LEUKOCYTE ESTERASE URINE NEGATIVE NEGATIVE TBH URINE MICROSCOPIC INDICATED NO TBH 09/24/2024 5:00 AM EDT 09/24/2024 6:18 AM EDT Narrative CLINISYNC - 09/24/2024 6:27 AM EDT us Tori Almeida NP CLINISYNC Final Result Performing Organization Address City/[facility] Co de Phone Number CLINTAYNC TB * TBH MICROALB CREAT RATIO RANDOM (09/24/2024 5:00 AM EDT) MICROALBUMIN URINE RANDOM <1.3 <=30.0 mg/dL TB CREATININE URINE RANDOM 247.34 20.00 - 300.00 mg/dL TB MICROALBUM CREATININE RATIO UR 5.2 0.0 - 29.9 mg/g TB Comment: NO MICROALBUMINURIA 0-29 MG/G CLINICAL MICROALBUMINURIA 30-300 MG/G MACROALBUMINURIA >300 MG/G 09/24/2024 5:00 AM EDT 09/24/2024 6:18 AM EDT Narrative CLINISYNC - 09/24/2024 6:32 AM EDT Tori Almeida NP CLINISYNC Final Result Performing Organization Address [facility] de Phone Number ANGELA [facility] * (ABNORMAL) [facility] CMP (CMP) (FOR REMOTE [facility] USE) (09/20/2024 7:34 AM EDT) SODIUM 141 136 - 145 mmol/L TBH POTASSIUM 3.4(L) 3.5 - 5.1 mmol/L TBH CHLORIDE 103 98 - 107 mmol/L TBH CARBON DIOXIDE 25.9 21.0 - 32.0 mmol/L TBH ANION GAP 15.5 TBH GLUCOSE 116(H) 74 - 106 mg/dL TBH BLOOD UREA NITROGEN 23.0(H) 7.0 - 18.0 mg/dL TBH CREATININE 0.89 0.70 - 1.30 mg/dL TBH TBH EGFR-AF BRAZILIAN >60 >=60 mL/min/1. 73m 2 TBH TBH EGFR-NON AF BRAZILIAN >60 >=60 mL/min/1. 73m 2 TBH BUN [...] 3.3 g/dL TBH ALBUMIN GLOBULIN RATIO 1.3 TB 09/20/2024 7:34 AM EDT 09/20/2024 7:35 AM EDT Narrative CLINISYNC - 09/20/2024 9:39 AM EDT Tori Juan Pablo ACUPRESSURE THERAPIST CLINISYNC Final Result [facility] * ALL URIC ACID (09/20/2024 7:34 AM EDT) URIC ACID 5.8 3.5 - 7.2 mg/dL TB 09/20/2024 7:34 AM EDT 09/20/2024 7:35 AM EDT Narrative CLINISYNC - 09/20/2024 9:39 AM EDT Tori Almeida NP CLINISYNC Final Result Performing Organization Address City/[facility] Co de Phone Number [facility] * ALL LIPID PROFILE (FASTING) (09/20/2024 7:34 AM EDT) TRIGLYCERIDES 136 <=150 mg/dL TBH CHOLESTEROL 183 <=200 mg/dL TB HDL CHOLESTEROL 40 40 - 60 mg/dL TB Comment: > or =60 mg/dl - LOW CARDIOVASCULAR RISK <40 mg/dl - HIGH CARDIOVASCULAR RISK LDL CHOLESTEROL CALCULATED 115.8 mg/dL TB Comment: <100 mg/dl OPTIMAL 100-129 mg/dl NEAR OR ABOVE OPTIMAL 130-159 mg/dl BORDERLINE HIGH 160-189 mg/dl HIGH >190 mg/dl VERY HIGH VLDL CHOLESTEROL 27.2 mg/dL TB CHOL HDL RATIO 4.6 TB Comment: 3.3 - 4.4 LOW RISK 4.4 - 7.1 AVERAGE RISK 7.1 - 11.0 MODERATE RISK >11.0 HIGH RISK 09/20/2024 7:3 4 AM EDT 09/20/2024 7:35 AM EDT Narrative CLINISYNC - 09/20/2024 9:39 AM EDT us Tori Jhaveriidalia DAVID CLINISYNC Final Result CLINISYNC TB * (ABNORMAL) ALL CBC WITH AUTO DIFF (09/20/2024 7:34 AM EDT) Pathologist [facility] TB WBC 9.7 4.0 - 11.0 10 [...] Narrative CLINISYNC - 09/20/2024 7:48 AM EDT Tori Almeida NP CLINISYNC Final Result [facility] from Last 3 Months Insurance [id number] [place] [address] [employer] Care Teams Securities Underwriter Relationship Specialty Start Date End Date Angel Morgan MD [address] [place] [phone] PCP - General Family Medicine 07/03/23 Tori Almeida NP [address] [place] [address] Nurse Practitioner Family Medicine 07/03/23
--- OUTSIDE RECORDS SUMMARY | 2024-10-13 07:33 | XMS_ITS | Encounter Summary ---
Author Organization [facility] Address [address] [place] [address] Care Team Providers Care Grated Cheese Maker Name Role Phone Angel Morgan MD Primary Care Provider [phone] Tori Almeida NP Unavailable [phone] Reason for Visit * Reason Comments Med Refill Encounter Details Date Type Department Care Team (Late st Contact Info) Description 08/28/[address] [facility] [address] [place] [address] Tori Almeida NP [address] [place] [phone] Chronic gout of multiple sites, unspecified cause [...] Office Visit [facility] [address] [place] [address] Tori Almeida NP [address] [place] [address] documented as of this encounter Visit Diagnoses Diagnosis Chronic gout of multiple sites, unspecified cause Primary hypertension- Primary Unspecified essential hypertension Chronic gout of multiple sites, unspecified cause Mixed hyperlipidemia Mixed hyperlipidemia Hyperglycemia Other abnormal glucose Colon cancer screening Special screening for malignant neoplasms, colon documented in this encounter Care Teams Grated Cheese Maker Relationship Specialty Start Date End Date Angel Morgan MD [address] [place] [address] PCP - General Family Medicine 07/03/23 Tori Almeida NP [address] [place] [address] Nurse Practitioner Family Medicine 07/03/23 documented as of this encounter
--- OUTSIDE RECORDS SUMMARY | 2024-10-13 07:33 | XMS_ITS | Clinical Summary ---
Author Organization [employer] [facility] [employer] Address [id number] [address] [place] [address] Care Team Providers Care Tool And Equipment Rental Clerk Name Role Phone Tori Almeida MRI TECHNICIAN-STERILIZATION TECH Primary Care Provider Social History Tobacco Use [...] on file Insurance [employer] Care Teams Tool And Equipment Rental Clerk Relationship Specialty Start Date End Date Tori Almeida, MRI TECHNICIAN-STERILIZATION TECH PCP - General Nurse Practitioner 06/09/19
--- OUTSIDE RECORDS SUMMARY | 2024-10-13 07:33 | XMS_ITS | Encounter Summary ---
Author Organization [facility] Address [address] [place] [address] Care Team Providers Care Game Developer Name Role Phone Angel Morgan MD Primary Care Provider [phone] Tori Almeida NP Unavailable [phone] Reason for Visit * Reason Comments Med Refill Encounter Details Date Type Department Care Team (Late st Contact Info) Description 05/21/2023 Refill [facility] [address] [place] [phone] Tori Almeida NP [address] [place] [phone] Social History Tobacco Use Types Packs/Day Years [...] 10/13/2024 3:40 PM EDT Office Visit [facility] [address] [place] [address] Tori Almeida NP [address] [place] [address] documented as of this encounter Visit Diagnoses Not on filedocumented in this encounter Care Teams Game Developer Relationship Specialty Start Date End Date Angel Morgan MD [address] [place] [address] PCP - General Family Medicine 07/03/23 Tori Almeida NP [address] [place] [address] Nurse Practitioner Family Medicine 07/03/23 documented as of this encounter
== END 2024-10-13 07:31 | disposition home or self-care (01) ==
LOC: LAB 07:31
PROVIDERS: PCP Nurse Practitioner; Visit Provider Nurse Practitioner
DX: R73.9 Hyperglycemia, unspecified (principal)
CPT/HCPCS: 36415; 83036